=== PATIENT | male | born 1940 | race Caucasian/White ===

== ENCOUNTER → 2018-04-21 | Outpatient (CLI) | payer MEDICARE ==
[~2018-04-21] MED LIST: ASPI-496 PO; ASPI-515 PO; DOXA4TAB2 PO; DULO60CA7 PO; FINA5TAB PO; FISH1CAP PO; HYDR-3240 PO; LISI-167 PO; METF500T5 PO; MULT-516 PO; OMEP-110 PO; OMEP20TA62 PO; SULF-169 PO; TIZA4TAB9 PO
[2018-04-21 11:42] LABS: ALANINE AMINOTRANSFERASE 25 U/L (12-78); ALBUMIN 3.8 g/dL (3.4-5.0); ANION GAP 6 mmol/L (5-15); CALCIUM 8.5 mg/dL (8.5-10.1); CHLORIDE 107 mmol/L (98-107); CREATININE 0.94 mg/dL (0.7-1.3)
[2018-04-21 11:44] LABS: ALKALINE PHOSPHATASE 63 U/L (45-117); BILIRUBIN,TOTAL 0.5 mg/dL (0.2-1.0)
[2018-04-21 11:50] LABS: MICROSCOPIC AUTO
== END | disposition home or self-care (01) ==
LOC: STAR 10:30
PROVIDERS: ATTEND Urology
DX: Z01.818 Encounter for other preprocedural examination (principal); N21.0 Calculus in bladder
CPT/HCPCS: 36415; 80053; 81001; 87086; 93005